=== PATIENT | male | born 1940 | race Two or more races ===

== ENCOUNTER 2024-04-03 10:31 | Emergency (ER) | payer OTHER ==
[~2024-04-03] VITALS: Ht 160 cm; Wt 61.4 kg
[2024-04-03 11:05] LABS: BASOPHILS % (AUTO) 0.4 % (0.0-2.0); EOSINOPHILS % (AUTO) 1.4 % (1.0-6.0); HEMATOCRIT 35.5 % (41-53); HEMOGLOBIN 11.6 g/dL (13.5-17.5); LYMPHOCYTES % (AUTO) 45.6 % (22.0-44.0); MEAN CORPUSCULAR HEMOGLOBIN 34.3 pg (26.0-34.0); MEAN CORPUSCULAR HGB CONC 32.6 G/dL (31.0-37.0); MEAN CORPUSCULAR VOLUME 105 fL (80-100); MONOCYTES # (AUTO) 0.8 K/uL (0.1-1.0); MONOCYTES % (AUTO) 5.8 % (2.0-9.0); NEUTROPHILS # (AUTO) 6.2 K/uL (1.8-7.7); NEUTROPHILS % (AUTO) 46.8 % (40.0-70.0); PLATELET COUNT (AUTO) 315 K/uL (150-450); RED BLOOD CELL COUNT(AUTO) 3.38 MIL/uL (4.50-5.90); RED CELL DISTRIBUTION WIDTH 15.1 % (11.5-14.5); WHITE BLOOD COUNT (AUTO) 13.1 K/uL (4.5-11.0)
[2024-04-03 11:10] LABS: RBC MORPHOLOGY COMMENT ABNORMAL RBC MORPH
[2024-04-03 11:14] LABS: CREATININE 1.32 mg/dL (0.60-1.30); POTASSIUM 3.6 mmol/L (3.5-5.1)
[2024-04-03] MEDS: ACETAMINOPHEN 1000 MG/ISO-OSM 100 ML IV ONE (11:33)
[2024-04-03] MEDS: SODIUM CHLORIDE 0.9% 1,000 ML IV ONE (11:33)
[2024-04-03 11:47] VITALS: TEMP 97.4
[2024-04-03 12:11] LABS: TROPONIN I-HIGH SENSITIVITY 14 ng/L (<76)
[2024-04-03 13:16] VITALS: BP 130/73; PULSE 72; RESP 22
== END 2024-04-03 14:24 | disposition short-term general hospital (02) ==
LOC: EMS 10:31 → EDBD 10:31 → EMS 14:24
DX: T63.441A Toxic effect of venom of bees, accidental (unintentional), initial encounter (principal); Y99.8 Other external cause status
CPT/HCPCS: 99285; 96365; 80048; 82550; 84484; 85025; 36415; 93005; J0131; 99284

== ENCOUNTER 2024-12-12 04:49 | Emergency (ER) | payer OTHER ==
[~2024-12-12] VITALS: Ht 165.1 cm; Wt 45.5 kg
[2024-12-12 04:54] VITALS: BP 80/46; PULSE 66; RESP 20; TEMP 97.7; O2SAT 99
[2024-12-12] MEDS ORDERED: 0.9% SODIUM CHLORIDE 10 ML SYRINGE IVP PRN (05:00)
[2024-12-12] MEDS: NOREPINEPHRINE 8 MG/0.9 % NACL 250 ML IV PRN (05:14)
[2024-12-12 05:41] LABS: BASOPHILS % (AUTO) 0.4 % (0.0-2.0); EOSINOPHILS % (AUTO) 0 % (1.0-6.0); HEMATOCRIT 21.2 % (41-53); HEMOGLOBIN 7.1 g/dL (13.5-17.5); LYMPHOCYTES # (AUTO) 1.1 K/uL (1.0-4.8); MEAN CORPUSCULAR HEMOGLOBIN 34.4 pg (26.0-34.0); MEAN CORPUSCULAR HGB CONC 33.4 G/dL (31.0-37.0); MEAN CORPUSCULAR VOLUME 103 fL (80-100); MONOCYTES # (AUTO) 0.4 K/uL (0.1-1.0); MONOCYTES % (AUTO) 6.8 % (2.0-9.0); NEUTROPHILS # (AUTO) 3.8 K/uL (1.8-7.7); NEUTROPHILS % (AUTO) 71.8 % (40.0-70.0); PLATELET COUNT (AUTO) 227 K/uL (150-450); RED BLOOD CELL COUNT(AUTO) 2.06 MIL/uL (4.50-5.90); RED CELL DISTRIBUTION WIDTH 20.9 % (11.5-14.5); WHITE BLOOD COUNT (AUTO) 5.3 K/uL (4.5-11.0)
[2024-12-12 05:44] LABS: ANION GAP 10 mmol/L (8-16); CALCIUM, TOTAL 8.2 mg/dL (8.8-10.5); CARBON DIOXIDE 30 mmol/L (22-29); CHLORIDE 107 mmol/L (98-107); CREATININE 2.08 mg/dL (0.60-1.30); GLOMERULAR FILTR. RATE CALC 30 mL/min (>60); GLUCOSE,RANDOM 144 mg/dL (70-110); POTASSIUM 3.4 mmol/L (3.5-5.1); SODIUM SERUM 147 mmol/L (136-145); UREA NITROGEN, BLOOD 41 mg/dL (7-18)
[2024-12-12 05:47] LABS: PROTHROMBIN TIME 16.1 SEC (9.4-11.6)
[2024-12-12 05:55] LABS: APPEARANCE,URINE HAZY (CLEAR); BILIRUBIN,URINE NEGATIVE (NEGATIVE); COLOR,URINE YELLOW (YELLOW); GLUCOSE, URINE (UA) NEGATIVE (NEGATIVE); KETONES,URINE NEGATIVE (NEGATIVE); LEUKOCYTE ESTERASE ,URINE NEGATIVE (NEGATIVE); NITRATE,URINE NEGATIVE (NEGATIVE); OCCULT BLOOD,URINE NEGATIVE (NEGATIVE); PH,URINE 5.5 (5.0-8.0); PROTEIN,URINE TRACE mg/dL (NEGATIVE); SPECIFIC GRAVITIY, URINE 1.013 (1.003-1.030)
[2024-12-12 05:59] LABS: D-DIMER 0.25 mg/L FEU (0.00-0.50)
[2024-12-12 06:05] LABS: LACTIC ACID 2.3 mmol/L (0.4-2.0)
[2024-12-12 06:06] LABS: TROPONIN I-HIGH SENSITIVITY 1367 ng/L (<76)
[2024-12-12 06:11] LABS: INFLUENZA TYPE A NEGATIVE FOR TYPE A (NEGATIVE); INFLUENZA TYPE B NEGATIVE FOR TYPE B (NEGATIVE)
[2024-12-12 06:13] LABS: B-TYPE NATRIURETIC PEPTIDE 862 pg/mL (0-100)
[2024-12-12 06:22] LABS: RBC MORPHOLOGY COMMENT ABNORMAL RBC MORPH
== END 2024-12-12 09:32 ==
LOC: EMS 04:50
DX: I46.9 Cardiac arrest, cause unspecified (principal); E78.00 Pure hypercholesterolemia, unspecified; I25.10 Atherosclerotic heart disease of native coronary artery without angina pectoris; I25.5 Ischemic cardiomyopathy; I48.91 Unspecified atrial fibrillation; Z85.118 Personal history of other malignant neoplasm of bronchus and lung; Z95.1 Presence of aortocoronary bypass graft; Z95.810 Presence of automatic (implantable) cardiac defibrillator
CPT/HCPCS: 80048; 81003; 83605; 83880; 84145; 84484; 85025; 85379; 85610; 87804; 93005; 96365; 99285